=== PATIENT | female | born 1945 | race Caucasian/White ===

== ENCOUNTER 2021-02-17 11:32 | Inpatient (IN) | payer MEDICARE, OTHER ==
[2021-02-17] MEDS ORDERED: HEPARIN SODIUM 1,000 UN/ML (10ML VL) IV ONE (12:32)
[2021-02-17] MEDS ORDERED: DILTIAZEM DRIP BOLUS FROM BAG 1 MG SOLN IV ONE (12:34)
[2021-02-17] MEDS ORDERED: SODIUM CHLORIDE 0.9% 500 ML 500 ML IV ONE (12:35)
[2021-02-17] MEDS ORDERED: HYDROCORTISONE 10 MG TAB PO STA (12:38)
[2021-02-17] MEDS ORDERED: HEPARIN SOD,PORK IN 0.45% NACL 25,000 UNIT in 0.45% NACL 1 250ML.BAG IV SCH (12:45)
--- NOTE | 2021-02-17 12:45 | ED ---
General Adult HPI - General Chief complaint: Arrhythmia/Palpitations Stated complaint: high HR Time Seen by Provider: 02/17/21 12:00 Source: patient, RN notes reviewed, old records reviewed Mode of arrival: wheelchair Limitations: no limitations - History of Present Illness Initial comments: This is a 76-year-old female who presents emergency Department from a computer network and systems engineer office. Patient was going in for a regular check up and he found her to be in atrial flutter and cardiology would like her to be placed on Cardizem and heparin. Patient states over the last few weeks she's been feeling short of breath particularly with exertion but she thought it was just anxiety. Patient denies any chest pain. Patient denies any fever chills or cough per patient states she does have the COVID vaccine. Patient denies any abdominal pain patient's nausea vomiting or diarrhea. Patient denies any swelling to the legs or calf tenderness. - Related Data Allergies Allergy/AdvReac Type Severity Reaction Status Date / Time Penicillins Allergy Rash/Hives Verified 02/17/21 11:55 Review of Systems ROS Statement: Those systems with pertinent positive or pertinent negative responses have been documented in the HPI. ROS Other: All systems not noted in ROS Statement are negative. Past Medical History Past Medical History: COPD Additional Past Medical History / Comment(s): addisons, COPD History of Any Multi-Drug Resistant Organisms: None Reported Past Surgical History: Hysterectomy Additional Past Surgical History / Comment(s): cataract Past Psychological History: No Psychological Hx Reported Smoking Status: Current every day smoker Past Alcohol Use History: None Reported Past Drug Use History: None Reported General Exam - General Exam Comments Initial Comments: GENERAL: Patient is well-developed and well-nourished. Patient is nontoxic and well- hydrated and is in mild distress. ENT: Neck is soft and supple. No significant lymphadenopathy is noted. Oropharynx is clear. Moist mucous membranes. Neck has full range of motion without eliciting any pain. EYES: The sclera were anicteric and conjunctiva were pink and moist. Extraocular movements were intact and pupils were equal round and reactive to light. Eyelids were unremarkable. PULMONARY: Unlabored respirations. Good breath sounds bilaterally. No audible rales rhonchi or wheezing was noted. CARDIOVASCULAR: Patient is a regular rate at about 160 beats a minute ABDOMEN: Soft and nontender with normal bowel sounds. SKIN: Skin is clear with no lesions or rashes and otherwise unremarkable. NEUROLOGIC: Patient is alert and oriented x3. Cranial nerves II through XII are grossly intact. Motor and sensory are also intact. Normal speech, volume and content. Symmetrical smile. MUSCULOSKELETAL: Normal extremities with adequate strength and full range of motion. No lower extremity swelling or edema. No calf tenderness. LYMPHATICS: No significant lymphadenopathy is noted PSYCHIATRIC: Normal psychiatric evaluation. Limitations: no limitations Course Vital Signs 02/17/21 02/17/21 02/17/21 11:48 12:27 13:16 Temperature 98.3 F Pulse Rate 168 H 168 H 76 Respiratory 20 20 18 Rate Blood Pressure 119/82 133/91 112/80 O2 Sat by Pulse 90 L 90 L 94 L Oximetry Medical Decision Making - Medical Decision Making EKG shows atrial flutter 170 beats a minute MN interval is 128 QRS is 56 QT interval 366 QTC is 446. Patient's EKG shows no ST segment elevation or depression. Cardizem bolus of 10 mg is given and a Cardizem drip at 5 mg per hour was started. Patient also started on heparin. Patient heart rate slowed to 70 beats a minute so repeat EKG was done. EKG shows normal sinus rhythm at 72 bpm MN interval 162 QRS is 60 QT interval 392 QTC is 429 per patient's EKG shows no ST segment elevation or depression. I spoke with asymmetric and hospitalist they agreed to admit the patient and the patient I consult to cardiology continue the heparin and Cardizem on the floor. - Lab Data Result diagrams: 02/17/21 12:38 02/17/21 12:38 Lab Results 02/17/21 02/17/21 02/17/21 Range/Units 12:38 12:38 12:38 WBC 15.3 H (3.8-10.6) k/uL RBC 5.26 (3.80-5.40) m/uL Hgb 15.0 (11.4-16.0) gm/dL Hct 44.7 (34.0-46.0) % MCV 85.1 (80.0-100.0) fL MCH 28.5 (25.0-35.0) pg MCHC 33.5 (31.0-37.0) g/dL RDW 13.0 (11.5-15.5) % Plt Count 255 (150-450) k/uL MPV 8.3 Neutrophils % 81 % Lymphocytes % 12 % Monocytes % 3 % Eosinophils % 2 % Basophils % 1 % Neutrophils # 12.4 H (1.3-7.7) k/uL Lymphocytes # 1.8 (1.0-4.8) k/uL Monocytes # 0.5 (0-1.0) k/uL Eosinophils # 0.3 (0-0.7) k/uL Basophils # 0.1 (0-0.2) k/uL PT 10.5 (9.0-12.0) sec INR 1.0 (<1.2) APTT 30.7 H (22.0-30.0) sec Sodium 141 (137-145) mmol/L Potassium 4.0 (3.5-5.1) mmol/L Chloride 107 (98-107) mmol/L Carbon Dioxide 24 (22-30) mmol/L Anion Gap 10 mmol/L BUN 11 (7-17) mg/dL Creatinine 0.73 (0.52-1.04) mg/dL Est GFR (CKD-EPI)AfAm >90 (>60 ml/min/1.73 sqM) Est GFR (CKD-EPI)NonAf 81 (>60 ml/min/1.73 sqM) Glucose 99 (74-99) mg/dL Calcium 9.5 (8.4-10.2) mg/dL Magnesium 1.8 (1.6-2.3) mg/dL Total Bilirubin 0.6 (0.2-1.3) mg/dL AST 30 (14-36) U/L ALT 18 (4-34) U/L Alkaline Phosphatase 99 (38-126) U/L Total Protein 7.6 (6.3-8.2) g/dL Albumin 4.2 (3.5-5.0) g/dL Critical Care Time Critical Care Time: Yes Total Critical Care Time: 35 Disposition Clinical Impression: Atrial flutter Disposition: ADMITTED IP TO THIS HOSP Referrals: Brianna Ojeda MD [Primary Care Provider] - 1-2 days Time of Disposition: 13:24
[2021-02-17 12:52] LABS: Basophils # (A) 0.1 k/uL (0-0.2); Basophils % (A) 1 %; Eosinophils # (A) 0.3 k/uL (0-0.7); Eosinophils % (A) 2 %; HCT 44.7 % (34.0-46.0); Lymphocytes # (A) 1.8 k/uL (1.0-4.8); Lymphocytes % (A) 12 %; MCH 28.5 pg (25.0-35.0); MCHC 33.5 g/dL (31.0-37.0); MCV 85.1 fL (80.0-100.0); Mean Platelet Volume 8.3; Monocytes # (A) 0.5 k/uL (0-1.0); Monocytes % (A) 3 %; Neutrophils # (A) 12.4 k/uL (1.3-7.7); Neutrophils % (A) 81 %; Platelet Count 255 k/uL (150-450); RBC 5.26 m/uL (3.80-5.40); WBC 15.3 k/uL (3.8-10.6)
[2021-02-17] MEDS ORDERED: DILTIAZEM 125 MG in SODIUM CHLORIDE 0.9% 100 ML IV SCH (13:00)
[2021-02-17 13:02] LABS: Partial Thromboplastin Time 30.7 sec (22.0-30.0); Prothrombin Time 10.5 sec (9.0-12.0)
[2021-02-17 13:06] LABS: ALT 18 U/L (4-34); AST 30 U/L (14-36); African American GFR (CKD) >90 (>60 ml/min/1.73 sqM); Albumin 4.2 g/dL (3.5-5.0); Alkaline Phosphatase 99 U/L (38-126); Anion Gap 10 mmol/L; Blood Urea Nitrogen 11 mg/dL (7-17); Calcium 9.5 mg/dL (8.4-10.2); Carbon Dioxide 24 mmol/L (22-30); Chloride 107 mmol/L (98-107); Glucose 99 mg/dL (74-99); Magnesium 1.8 mg/dL (1.6-2.3); Non-African American GFR(CKD) 81 (>60 ml/min/1.73 sqM); Sodium 141 mmol/L (137-145); Total Bilirubin 0.6 mg/dL (0.2-1.3); Total Protein 7.6 g/dL (6.3-8.2)
[2021-02-17] MEDS ORDERED: NITROGLYCERIN SL TABS 0.4 MG TAB SUBLINGUAL PRN (13:29)
[2021-02-17] MEDS ORDERED: ALBUTEROL NEBULIZED 2.5 MG/3 ML INHALATION PRN (15:46)
[2021-02-17] MEDS ORDERED: LORazepam 0.5 MG TAB PO PRN (15:46)
[2021-02-17] MEDS ORDERED: LORATADINE 10 MG TAB PO PRN (15:46)
[2021-02-17] MEDS ORDERED: TEMAZEPAM 15 MG CAP PO PRN (15:46)
--- NOTE | 2021-02-17 15:46 | P.HPIM ---
History of Present Illness H&P Date: 02/17/21 This is a pleasant 76 of chemotherapy presents to the with new onset atrial flutter sent from her cardiology office. Patient was started on Cardizem and heparin drip. Patient has been feeling short of breath with exertion over the last couple weeks and attributed to anxiety. She currently denies any chest pain or chest pressure. She denies any fever, chills, or cough, patient has had her Covid vaccination. Additionally she denies any nausea vomiting or diarrhea. Past medical history significant for COPD, [place]'s, hypothyroidism, hyperlipidemia, hypertension. Patient does follow with Dr. Gutierrez with endocrinology, she TSH was checked in July of this year she states it within normal range, she also an A1c done at that time which was 6.1, she is prophylactically on metformin for prediabetes. She is a current every day smoker. Labs show white blood cell count 15.3, troponin is negative, BNP is 96. All other labs are unremarkable. Home medications include Synthroid, hydrocor tisone, Crestor, atenolol and baby aspirin. Patient does take metformin at home as well. We will continue on Cardizem and heparin drip we will check a TSH and T4. Pressure is 112/80, heart rate 76 sinus rhythm, 94% on 3 L nasal cannula and she is afebrile. Chest x-ray is pending. REVIEW OF SYSTEMS: CONSTITUTIONAL: No fever, no malaise, no fatigue. HEENT: No recent visual problems or hearing problems. Denied any sore throat. CARDIOVASCULAR: No chest pain, orthopnea, PND, no palpitations, no syncope. PULMONARY: No shortness of breath, no cough, no hemoptysis. GASTROINTESTINAL: No diarrhea, no nausea, no vomiting, no abdominal pain. NEUROLOGICAL: No headaches, no weakness, no numbness. HEMATOLOGICAL: Denies any bleeding or petechiae. GENITOURINARY: Denies any burning micturition, frequency, or urgency. MUSCULOSKELETAL/RHEUMATOLOGICAL: Denies any joint pain, swelling, or any muscle pain. ENDOCRINE: Denies any polyuria or polydipsia. The rest of the 14-point review of systems is negative. PHYSICAL EXAMINATION: GENERAL: The patient is alert and oriented x3, not in any acute distress. Well developed, well nourished. HEENT: Pupils are round and equally reacting to light. EOMI. No scleral icterus. No conjunctival pallor. Normocephalic, atraumatic. No pharyngeal erythema. No thyromegaly. CARDIOVASCULAR: S1 and S2 present. No murmurs, rubs, or gallops. PULMONARY: Chest is clear to auscultation, no wheezing or crackles. ABDOMEN: Soft, nontender, nondistended, normoactive bowel sounds. No palpable organomegaly. MUSCULOSKELETAL: No joint swelling or deformity. EXTREMITIES: No cyanosis, clubbing, or pedal edema. NEUROLOGICAL: Gross neurological examination did not reveal any focal deficits. SKIN: No rashes. Assessment and plan New-onset atrial flutter Hypothyroidism check TSH Prediabetic - monitor blood sugars, hold metformin -Hypertension [place]'s disease, maintained on cortisone -History of COPD, not in acute exacerbation -chronic nicotine dependence DVT prophylaxis on heparin drip Cardiology consultation Past Medical History Past Medical History: COPD Additional Past Medical History / Comment(s): addisons, COPD History of Any Multi-Drug Resistant Organisms: None Reported Past Surgical History: Hysterectomy Additional Past Surgical History / Comment(s): cataract Past Psychological History: No Psychological Hx Reported Smoking Status: Current every day smoker Past Alcohol Use History: None Reported Past Drug Use History: None Reported Medications and Allergies Home Medications Medication Instructions Recorded Confirmed Type Albuterol Nebulized [Ventolin 2.5 mg INHALATION RT-HS 02/17/21 02/17/21 History Nebulized] Albuterol Sulfate [Ventolin HFA] 2 puff INHALATION RT-Q6H PRN 02/17/21 02/17/21 History Aspirin EC [Ecotrin Low Dose] 81 mg PO HS 02/17/21 02/17/21 History Calcium Carbonate/Vitamin D3 1 tab PO DAILY 02/17/21 02/17/21 History [Calcium 500 mg-Vit D3 5 mcg (200 Unit)] Cyanocobalamin [Vitamin B-12] 500 mcg PO DAILY 02/17/21 02/17/21 History Fludrocortisone [Florinef] 0.1 mg PO MOTUTHFRSA 02/17/21 02/17/21 History Hydrocortisone [Cortef] 5 mg PO DAILY@1300 02/17/21 02/17/21 History Hydrocortisone [Cortef] 15 mg PO DAILY 02/17/21 02/17/21 History LORazepam [Ativan] 0.5 mg PO BID PRN 02/17/21 02/17/21 History Levothyroxine Sodium [Synthroid] 75 mcg PO MOTUTHFRSA 02/17/21 02/17/21 History Loratadine [Claritin] 10 mg PO HS PRN 02/17/21 02/17/21 History Multivitamins, Thera [Multivitamin 1 tab PO DAILY 02/17/21 02/17/21 History (formulary)] Rosuvastatin [Crestor] 10 mg PO HS 02/17/21 02/17/21 History Temazepam [Restoril] 15 mg PO HS PRN 02/17/21 02/17/21 History Zinc 100 mg PO DAILY 02/17/21 02/17/21 History atenoloL [Tenormin] 12.5 mg PO HS 02/17/21 02/17/21 History metFORMIN HCL 500 mg PO DAILY 02/17/21 02/17/21 History Allergies Allergy/AdvReac Type Severity Reaction Status Date / Time Penicillins Allergy Rash/Hives Verified 02/17/21 14:22 Physical Exam Vitals: Vital Signs Temp Pulse Resp BP Pulse Ox 02/17/21 13:16 76 18 112/80 94 L 02/17/21 12:27 168 H 20 133/91 90 L 02/17/21 11:48 98.3 F 168 H 20 119/82 90 L Intake and Output 02/16/21 02/17/21 02/17/21 22:59 06:59 14:59 Other: Weight 82.1 kg Results CBC & Chem 7: 02/17/21 12:38 02/17/21 12:38 Labs: Abnormal Lab Results - Last 24 Hours (Table) 02/17/21 02/17/21 Range/Units 12:38 12:38 WBC 15.3 H (3.8-10.6) k/uL Neutrophils # 12.4 H (1.3-7.7) k/uL APTT 30.7 H (22.0-30.0) sec Assessment and Plan Time with Patient: Greater than 30
[2021-02-17 16:08] LABS: Appearance,Urine Clear (Clear); Bilirubin,Urine Negative (Negative); Blood,Urine Small (Negative); Color,Urine Colorless; Glucose,Urine (UA) Negative (Negative); Ketones,Urine Negative (Negative); Leukocyte Esterase,Urine Moderate (Negative); Mucus,Urine Rare /hpf; Nitrite,Urine Negative (Negative); Protein,Urine Negative (Negative); RBC,Urine <1 /hpf (0-5); Specific Gravity,Urine 1.003 (1.001-1.035); Squamous Epithelial Cell,Urine <1 /hpf (0-4); Urobilinogen,Urine <2.0 mg/dL (<2.0); WBC,Urine 2 /hpf (0-5)
--- NOTE | 2021-02-17 17:54 | XR ---
EXAMINATION TYPE: XR chest 2V DATE OF EXAM: 02/17/2021 COMPARISON: 12/16/2015 INDICATION: Dysrhythmia short of breath history of COPD TECHNIQUE: Frontal and lateral views of the chest are obtained. FINDINGS: The heart size is borderline in size. The pulmonary vasculature is upper limits for normal. Mild diffuse increased lung markings are present greater to lung bases. Correlate for early volume ov erload. IMPRESSION: 1. Ankle consideration for early volume overload is recommended
[2021-02-17] MEDS ORDERED: ALBUTEROL NEBULIZED 2.5 MG/3 ML INHALATION SCH (20:00)
[2021-02-17] MEDS ORDERED: ATORVASTATIN 20 MG TAB PO SCH (21:00)
[2021-02-18 03:46] LABS: Basophils % (A) 1 %; Eosinophils # (A) 0.3 k/uL (0-0.7); Eosinophils % (A) 4 %; HCT 40.4 % (34.0-46.0); HGB 13.2 gm/dL (11.4-16.0); Lymphocytes # (A) 2.9 k/uL (1.0-4.8); Lymphocytes % (A) 33 %; MCH 27.8 pg (25.0-35.0); MCHC 32.7 g/dL (31.0-37.0); MCV 85.1 fL (80.0-100.0); Mean Platelet Volume 8.6; Monocytes # (A) 0.6 k/uL (0-1.0); Monocytes % (A) 6 %; Neutrophils # (A) 4.9 k/uL (1.3-7.7); Neutrophils % (A) 55 %; Platelet Count 228 k/uL (150-450); RBC 4.74 m/uL (3.80-5.40); RDW 13.1 % (11.5-15.5); WBC 8.8 k/uL (3.8-10.6)
[2021-02-18 05:00] LABS: African American GFR (CKD) 87 (>60 ml/min/1.73 sqM); Anion Gap 6 mmol/L; Blood Urea Nitrogen 11 mg/dL (7-17); Calcium 9.1 mg/dL (8.4-10.2); Carbon Dioxide 25 mmol/L (22-30); Chloride 107 mmol/L (98-107); Glucose 84 mg/dL (74-99); Non-African American GFR(CKD) 76 (>60 ml/min/1.73 sqM); Potassium 3.6 mmol/L (3.5-5.1); Sodium 138 mmol/L (137-145)
[2021-02-18] MEDS ORDERED: MULTIVITAMINS, THERA 1 EACH TAB PO SCH (09:00)
[2021-02-18] MEDS ORDERED: CALCIUM CARB-VIT D 500 MG-5 MCG TAB PO SCH (09:00)
[2021-02-18] MEDS ORDERED: ZINC SULFATE 220 MG CAP PO SCH (09:00)
[2021-02-18] MEDS ORDERED: ASPIRIN 325 MG TAB PO SCH (09:00)
[2021-02-18] MEDS ORDERED: atenoloL 25 MG TAB PO SCH (09:00)
[2021-02-18] MEDS ORDERED: CYANOCOBALAMIN 500 MCG TAB PO SCH (09:00)
[2021-02-18] MEDS ORDERED: HYDROCORTISONE 10 MG TAB PO SCH ×2 (09:00→13:00)
[2021-02-18 10:58] LABS: Chol/HDL Ratio 2.35 Ratio; LDL Cholesterol,Calculated 57.8 mg/dL (0.0-131.0)
--- NOTE | 2021-02-18 13:11 | P.PN ---
Subjective Progress Note Date: 02/18/21 Please note patient was sent to the hospital yesterday by her unpaid intern office. Please review to his consult note performed at his office yesterday that was scanned into the EMR HISTORY OF PRESENT ILLNESS: Patient examined this morning at the bedside in the emergency room. Patient was admitted to the hospital secondary to new onset atrial flutter. Patient has converted to sinus mechanism. She is maintaining sinusitis in this morning with a heart rate in the 80s. She remains on IV Cardizem and IV heparin. She denies any shortness of breath. Denies chest pain or pressure. Denies any palpitations. PHYSICAL EXAM: VITAL SIGNS: Reviewed. GENERAL: Well-developed in no acute distress. NECK: Supple. No JVD or thyromegaly LUNGS: Respirations even and unlabored. Lungs essentially clear to auscultation bilaterally. HEART: Regular rate and rhythm. S1 and S2 heard. EXTREMITIES: Normal range of motion. No clubbing or cyanosis. Peripheral pulses intact. No lower extremity edema ASSESSMENT: New-onset paroxysmal typical atrial flutter Hypertension Hyperlipidemia Diabetes [place]'s disease Nicotine dependence PLAN: Obtain 2-D echo to assess cardiac structure and function Decrease daily aspirin to 81 mg daily Discontinue IV heparin. Begin Eliquis 5 mg twice a day Discontinue IV Cardizem. Resume atenolol. Increase dose to 25 mg daily The patient is currently stable from a cardiac perspective. She may be discharged home this afternoon. Nurse practitioner note has been reviewed by physician. Signing provider agrees with the documented findings, assessment, and plan of care. Objective - Vital Signs Vital signs: Vital Signs Temp 97.5 F L 02/18/21 08:32 Pulse 80 02/18/21 08:32 Resp 20 02/18/21 08:32 BP 130/83 02/18/21 08:32 Pulse Ox 96 02/18/21 08:32 Intake & Output 02/17/21 02/18/21 02/18/21 18:59 06:59 18:59 Intake Total 3.583 499.586 Output Total 200 Balance 3.583 299.586 Weight 82.1 kg Intake: Intake, IV Titration 3.583 149.586 Amount Diltiazem 125 mg In 3.583 Sodium Chloride 0.9% 100 ml @ 5 MG/HR 5 mls/hr IV .Q24H [facility] Rx#:[id number] Heparin Sod,Pork in 0.45% 149.586 NaCl 25,000 unit In 0.45 % NaCl 1 250ml.bag @ 12 UNITS/KG/HR 9.852 mls/hr IV .Q24H [facility] Rx#: [id number] Oral 350 Output: Urine 200 Other: # Voids 1 - Labs CBC & Chem 7: 02/18/21 02:33 02/18/21 02:33 Labs: Abnormal Lab Results - Last 24 Hours (Table) 02/17/21 02/18/21 02/18/21 Range/Units 15:46 02:33 02:33 APTT 114.2 H* (22.0-30.0) sec HDL Cholesterol 61.20 H (40.00-60.00) mg/dL Urine Blood Small H (Negative) Ur Leukocyte Esterase Moderate H (Negative) Urine Mucus Rare H (None) /hpf 02/18/21 Range/Units 11:03 APTT 51.2 H (22.0-30.0) sec HDL Cholesterol (40.00-60.00) mg/dL Urine Blood (Negative) Ur Leukocyte Esterase (Negative) Urine Mucus (None) /hpf
[2021-02-18 13:15] VITALS: RESP 18
[2021-02-18] MEDS ORDERED: APIXABAN 5 MG TAB PO SCH (13:15)
[2021-02-18 18:17] VITALS: BP 142/88; PULSE 78; TEMP 98.2
--- NOTE | 2021-02-18 22:00 | P.DS ---
Providers Date of admission: 02/17/21 13:30 Attending physician: Olga Dickinson Consults: 02/17/21 13:30 Consult Physician Urgent Consulting Provider: [facility] Consult Reason/Comments: Atrial flutter Do you want consulting provider notified?: Yes Primary care physician: Brianna Ojeda Hospital Course: Final Diagnosis New-onset atrial flutter Hypothyroidism Prediabetic -Hypertension [place]'s disease, maintained on cortisone -History of COPD, not in acute exacerbation -chronic nicotine dependence Discharge Disposition Patient is discharged home in a stable condition with an increase in atenolol, and was started on eliquis for prophylaxis. Hospital Course This is a pleasant 76 year old female who was sent to the from her cardiologists office. Pt was there for a routine office visit and was found to be in atrial flutter with rapid ventricular rate on EKG. Patient denied chest pain, chest pressure or palpitations. She states that she has been feeling anxious for a few weeks now and has been more short of breath when ambulating. She does wear oxygen as needed at home, and continues to smoke cigarettes. Additional history includes benitez's disease which was diagnosed in 2007, hypothyroidism, COPD, hyperlipidemia and hypertension. Patient was treated with IV cardizem and IV heparin in the EC and had converted to normal sinus rhythm. She was transitioned off heparin and started on eliquis 5 mg po bid, and atenolol was increased to 25 mg po daily. On admission, WBC count was 15.3, improved to 8.8. Chemistry panel is unremarkable. TSH 1.730. Troponin was negati ve x 3, and BNP is 96. Chest xray results: consideration for early volume overload is recommended. She had an echocardiogram taken, and was cleared by cardiology for discharge and to follow up in the office. 02/18/2021 Patient is evaluated today in the [facility], echocardiogram is pending. She was evaluated by cardiology services who does recommend a increasing her atenolol dosing. She is off the Cardizem drip. We did transition her from heparin drip to oral eliquis for new onset atrial flutter. She is still normal sinus rhythm. Her labs today were unremarkable, HDL 61.2, LDL 57, question 144 and triglycerides 125, troponin was negative. Urinalysis was within normal limits. Covid was not detected. Vital signs show a blood pressure 126/96, afebrile, heart rate 76 and she is 97% on 2 L nasal cannula. Chest x-ray today shows consideration for early volume overload. Lungs are clear to auscultation., S1- S2 auscultated, abdomen is soft nontender, she denies nausea vomiting or diarrhea. Patient states that her breathing feels much better and she would like to return home today. Please see medication reconciliation for a list of current medications. Thank you for allowing us to participate in the care of this patient. Patient Condition at Discharge: Fair Plan - Discharge Summary New Discharge Prescriptions: New Apixaban [Eliquis] 5 mg PO BID #60 tab atenoloL [Tenormin] 25 mg PO DAILY #30 tab Continue Hydrocortisone [Cortef] 5 mg PO DAILY@1300 Aspirin EC [Ecotrin Low Dose] 81 mg PO HS Loratadine [Claritin] 10 mg PO HS PRN PRN Reason: Allergy Symptoms Albuterol Sulfate [Ventolin HFA] 2 puff INHALATION RT-Q6H PRN PRN Reason: Shortness Of Breath Rosuvastatin [Crestor] 10 mg PO HS Albuterol Nebulized [Ventolin Nebulized] 2.5 mg INHALATION RT-HS Calcium Carbonate/Vitamin D3 [Calcium 500 mg-Vit D3 5 mcg (200 Unit)] 1 tab PO DAILY Zinc 100 mg PO DAILY LORazepam [Ativan] 0.5 mg PO BID PRN PRN Reason: Anxiety Hydrocortisone [Cortef] 15 mg PO DAILY Fludrocortisone [Florinef] 0.1 mg PO MOTUTHFRSA Levothyroxine Sodium [Synthroid] 75 mcg PO MOTUTHFRSA metFORMIN HCL 500 mg PO DAILY Multivitamins, Thera [Multivitamin (formulary)] 1 tab PO DAILY Cyanocobalamin [Vitamin B-12] 500 mcg PO DAILY Temazepam [Restoril] 15 mg PO HS PRN PRN Reason: Insomnia Discontinued atenoloL [Tenormin] 12.5 mg PO HS Discharge Medication List Albuterol Nebulized [Ventolin Nebulized] 2.5 mg INHALATION RT-HS 02/17/21 [History] Albuterol Sulfate [Ventolin HFA] 2 puff INHALATION RT-Q6H PRN 02/17/21 [History] Aspirin EC [Ecotrin Low Dose] 81 mg PO HS 02/17/21 [History] Calcium Carbonate/Vitamin D3 [Calcium 500 mg-Vit D3 5 mcg (200 Unit)] 1 tab PO DAILY 02/17/21 [History] Cyanocobalamin [Vitamin B-12] 500 mcg PO DAILY 02/17/21 [History] Fludrocortisone [Florinef] 0.1 mg PO MOTUTHFRSA 02/17/21 [History] Hydrocortisone [Cortef] 5 mg PO DAILY@1300 02/17/21 [History] Hydrocortisone [Cortef] 15 mg PO DAILY 02/17/21 [History] LORazepam [Ativan] 0.5 mg PO BID PRN 02/17/21 [History] Levothyroxine Sodium [Synthroid] 75 mcg PO MOTUTHFRSA 02/17/21 [History] Loratadine [Claritin] 10 mg PO HS PRN 02/17/21 [History] Multivitamins, Thera [Multivitamin (formulary)] 1 tab PO DAILY 02/17/21 [History] Rosuvastatin [Crestor] 10 mg PO HS 02/17/21 [History] Temazepam [Restoril] 15 mg PO HS PRN 02/17/21 [History] Zinc 100 mg PO DAILY 02/17/21 [History] metFORMIN HCL 500 mg PO DAILY 02/17/21 [History] Apixaban [Eliquis] 5 mg PO BID #60 tab 02/18/21 [Rx] atenoloL [Tenormin] 25 mg PO DAILY #30 tab 02/18/21 [Rx] Follow up Appointment(s)/Referral(s): Brianna Ojeda MD [Primary Care Provider] - 1-2 days Salvatore Katz MD [STAFF PHYSICIAN] - 1 Week Lukasz Gutierrez MD [REFERRING] - As Needed Discharge Disposition: HOME SELF-CARE
[2021-02-19] MEDS ORDERED: LEVOTHYROXINE 75 MCG TAB PO SCH (06:30)
[2021-02-19] MEDS ORDERED: ASPIRIN 81 MG PO SCH (09:00)
[2021-02-19] MEDS ORDERED: FLUDROCORTISONE 0.1 MG TAB PO SCH (09:00)
--- NOTE | 2021-02-19 11:41 | ECHOF ---
Referral Reason:LV function, new flutter MEASUREMENTS -------- HEIGHT: 160.0 cm WEIGHT: 82.1 kg BP: 130/83 RVIDd: 3.6 cm (< 3.3) IVSd: 1.3 cm (0.6 - 1.1) LVIDd: 3.2 cm (3.9 - 5.3) LVPWd: 1.3 cm (0.6 - 1.1) IVSs: 1.7 cm LVIDs: 1.8 cm LVPWs: 1.4 cm LA Diam: 3.4 cm (2.7 - 3.8) LAESV Index (A-L): 21.09 ml/m Ao Diam: 3.1 cm (2.0 - 3.7) AV Cusp: 1.9 cm (1.5 - 2.6) MV EXCURSION: 16.659 mm (> 18.000) MV EF SLOPE: 63 mm/s (70 - 150) EPSS: 0.4 cm MV E Jovani: 1.05 m/s MV DecT: 212 ms MV A Jovani: 1.13 m/s MV E/A Ratio: 0.93 RAP: 5.00 mmHg RVSP: 35.07 mmHg FINDINGS -------- Sinus rhythm. This was a technically adequate study. The left ventricular size is normal. There is mild concentric left ventricular hypertrophy. Overa ll left ventricular systolic function is normal with, an EF between 60 - 65 %. The right ventricle is mildly enlarged. Normal LA size by volume 22+/-6 ml/m2. The right atrium is normal in size. Interatrial and interventricular septum intact. There is mild aortic valve sclerosis. Mild mitral annular calcification present. Mild tricuspid regurgitation present. There is mild pulmonary hypertension. The right ventricular systolic pressure, as measured by Doppler, is 35.07mmHg. The pulmonic valve was not well visualized. The aortic root size is normal. Normal inferior vena cava with normal inspiratory collapse consistent with estimated right atrial pre ssure of 5 mmHg. There is no pericardial effusion. CONCLUSIONS -------- 1. The left ventricular size is normal. 2. There is mild concentric left ventricular hypertrophy. 3. Overall left ventricular systolic function is normal with, an EF between 60 - 65 %. 4. The right ventricle is mildly enlarged. 5. There is mild aortic valve sclerosis. 6. Mild mitral annular calcification present. 7. Mild tricuspid regurgitation present. 8. There is mild pulmonary hypertension. 9. The right ventricular systolic pressure, as measured by Doppler, is 35.07mmHg. 10. There is no pericardial effusion. RECYCLING WORKER: Milagro Solis RDCS
== END 2021-02-18 18:30 | disposition home or self-care (01) | DRG 309 ==
LOC: EC 11:32 → 3SCARD 13:30
PROVIDERS: ADMIT Internal Medicine; ATTEND Internal Medicine
DX: I48.3 Typical atrial flutter (principal); E27.1 Primary adrenocortical insufficiency; Z20.822 Contact with and (suspected) exposure to COVID-19; F17.210 Nicotine dependence, cigarettes, uncomplicated; J44.9 Chronic obstructive pulmonary disease, unspecified; I10 Essential (primary) hypertension; E78.5 Hyperlipidemia, unspecified; E11.9 Type 2 diabetes mellitus without complications; F41.9 Anxiety disorder, unspecified; E03.9 Hypothyroidism, unspecified; Z90.710 Acquired absence of both cervix and uterus; Z79.890 Hormone replacement therapy; Z79.84 Long term (current) use of oral hypoglycemic drugs; Z79.899 Other long term (current) drug therapy; Z88.0 Allergy status to penicillin; Z98.42 Cataract extraction status, left eye; Z98.41 Cataract extraction status, right eye
CPT/HCPCS: 36415; 71046; 80048; 80053; 80061; 81001; 82533; 83735; 83880; 84443; 84484; 85025; 85610; 85730; 87635; 93005; 93306; 94640; 96374; 96375; 99291

== ENCOUNTER 2023-03-22 08:04 | Day surgery (SDC) | payer MEDICARE, OTHER ==
[~2023-03-22 08:04] MED LIST: ALPRAZolam 0.25 MG TAB PO PRN; ALPRAZolam 0.5 MG TAB PO PRN; ASPIRIN 325 MG TAB PO STA; NITROGLYCERIN SL TABS 0.4 MG TAB SUBLINGUAL PRN; SODIUM CHLORIDE 0.9% 1,000 ML in EMPTY BAG 1 BAG IV SCH
[2023-03-22 08:27] LABS: Glucose,Whole Blood 90 mg/dL (70-110)
[2023-03-22 08:37] VITALS: RESP 16; TEMP 98.2
[2023-03-22] MEDS ORDERED: fentaNYL (PF) 50 MCG/ML 2 ML AMP ONE (09:04)
[2023-03-22] MEDS ORDERED: HEPARIN SODIUM 1,000 UN/ML (10ML VL) ONE (09:09)
[2023-03-22] MEDS ORDERED: fentaNYL (PF) 50 MCG/ML 2 ML AMP IVP ONE (09:16)
[2023-03-22] MEDS ORDERED: LIDOCAINE 1% INJ 10MG/ML (20 ML MDV) SQ ONE (09:21)
[2023-03-22] MEDS ORDERED: VERAPAMIL SYRINGE (5 MG/10 ML) INTRAARTER ONE (09:22)
[2023-03-22] MEDS ORDERED: HEPARIN SODIUM 1,000 UN/ML (10ML VL) IVP ONE (09:26)
[2023-03-22] MEDS ORDERED: IOPAMIDOL-370 100ML BTL INJ ONE (09:33)
[2023-03-22] MEDS ORDERED: RX INFO: IV CONTRAST WAS GIVEN 1 EACH MISC MISCELLANE PRN (09:42)
[2023-03-22] MEDS ORDERED: TEMAZEPAM 15 MG CAP PO PRN (09:43)
[2023-03-22] MEDS ORDERED: FLUDROCORTISONE 0.1 MG TAB PO SCH (09:45)
[2023-03-22] MEDS ORDERED: SODIUM CHLORIDE 0.9% 1,000 ML IV SCH (09:45)
--- NOTE | 2023-03-22 09:50 | P.CARDCATH ---
Date of Procedure: 03/22/23 Description of Procedure: Cardiac Catheterization: The patient is a 78-year-old female with a known history of hypertension, hyperlipidemia and diabetes who has been complaining of progressive dyspnea on exertion, had an abnormal MPI. Recommendations were made regarding cardiac catheterization, the risks and the complications were discussed with the patient who is in full understanding and agreement. Procedure Description: Patient was brought to phlebotomist medical lab assistant in fasting semi-sedated state after receiving F entanyl and Benadryl achieiving moderate conscious sedated state. Using Xylocaine Anesthesia and modified Seldinger technique, a 6-Mosotho sheath was introduced in the right radial artery . Subsequently, selective coronary angiography was performed using a 5-Mosotho 3.5 bend Ibeth catheter. Multiple views of the coronary artery including hemiaxial views were obtained. The pigtail catheter was used to cross the aortic valve and LVEDP was calculated. Following that, catheter and sheath were removed. Hemostasis was obtained with deployment of vascular band . There was no immediate complication. Patient was returned to room in stable condition. Of note, the patient received a total of 4500 units of intravenous heparin as well as intra-arterial verapamil. Findings: Left main: This is a large size vessel, bifurcating into LAD and left circumflex, left main has no obstructive disease LAD: This is a large size vessel, tapers down in the distal third LAD giving rise to a large diagonal branch in the mid segment, the LAD and its branches have no obstructive disease. Left circumflex: This is a large dominant vessel bifurcating distally to PDA and PLV among the left circumflex and its branches have no obstructive disease RCA: This is a small nondominant vessel that has no evidence of high-grade stenosis Left Ventriculogram: Not performed Hemodynamics: There was no gradient across the aortic valve , LVEDP was 14-16 mmHg Conclusion: 1. Normal coronary arteries 2. Left dominance 3. Normal LVEDP Recommendations: I see no evidence of obstructive disease to explain her symptoms, the results of the stress test probably presents a false positive, she will continue aggressive coronary risks modifications. The findings and the recommendations were discussed with the patient and the family and they were in full understanding and agreement. Duration of sedation is 13 minutes.
[2023-03-22 12:39] VITALS: BP 128/72; PULSE 52
[2023-03-22] MEDS ORDERED: HYDROCORTISONE 10 MG TAB PO SCH (13:00)
[2023-03-22] MEDS ORDERED: NON FORMULARY DRUG (Rosuvastatin 10 MG Tablet) PO SCH (21:00)
[2023-03-23] MEDS ORDERED: NON FORMULARY DRUG (Zinc [Zinc] 50 MG Tablet) PO SCH (09:00)
[2023-03-23] MEDS ORDERED: LEVOTHYROXINE 75 MCG TAB PO SCH (09:00)
[2023-03-23] MEDS ORDERED: HYDROCORTISONE 10 MG TAB PO SCH (09:00)
[2023-03-23] MEDS ORDERED: atenoloL 25 MG TAB PO SCH (09:00)
== END 2023-03-22 12:52 | disposition home or self-care (01) ==
LOC: CATHCVL 08:04
PROVIDERS: ATTEND Internal Medicine Interventional Cardiology
DX: I25.10 Atherosclerotic heart disease of native coronary artery without angina pectoris (principal); I10 Essential (primary) hypertension; E78.5 Hyperlipidemia, unspecified; E11.9 Type 2 diabetes mellitus without complications; F17.210 Nicotine dependence, cigarettes, uncomplicated; Z82.49 Family history of ischemic heart disease and other diseases of the circulatory system; Z79.01 Long term (current) use of anticoagulants; Z79.899 Other long term (current) drug therapy
CPT/HCPCS: 93458; C1769 ×2; C1894; J2001; J3010; J1644; Q9967